=== PATIENT | male | born 1950 | race Caucasian/White ===

== ENCOUNTER → 2017-10-29 | Outpatient (CLI) | payer MEDICARE, MEDICAID ==
[~2017-10-29] VITALS: Ht 185.4 cm; Wt 96.6 kg
[~2017-10-29] MED LIST: ACYCLOVIR 400400 MG PO; ADULT LOW DOSE81 MG; ADULT LOW DOSE81 MG PO; AMITRIPTYLINE H50 M3 PO; ASPIRIN325 PO; ATORVASTATIN CA40 MG PO; CELEBREX 200 M200 M1 PO; COQ-10100 MG; CRESTOR10 MG; CRESTOR20 MG PO; DILTIAZEM 24HR180 M2 PO; DIOVAN160 MG; FLOMAX0.4 MG PO; GLUMETZA1000 PO; HYDROCODONE-AP1 EAC6 PO; INVOKANA300 MG PO; ISOSORBIDE DINI30 MG PO; LANTUS SUBQ; LASIX 40 MG TAB40 M2 PO; LOPRESSOR50 PO; NEURONTIN 300300 M1 PO; NEXIUM 40 MG CA40 M1 PO; NITROGLYCERIN0.4 MG SUBLING; NOVOLOG100 UNIT/1 SUBQ; PLAVIX 75 MG TA75 M1; PREDNISONE 10 M10 MG PO; RANEXA500 MG PO; VASOTEC 2.5MG2.5 M1 PO; ZANTAC 150MG T150 M1 PO
[2017-10-29 13:48] LABS: HEMATOCRIT 46.1 % (42.0-52.0); MCH 27.1 pg (26.0-34.0); MCHC 32.6 g/dL (28.0-37.0); MCV 83.1 fL (80.0-100.0); MPV 9.4 fl. (7.2-11.1); NUCLEATED RBCS 0 /100WBC; PLATELET COUNT* 227 thou/uL (150-400); RBC 5.55 mil/uL (4.50-6.00); RDW-CV 15.6 % (10.5-14.5); WBC 11.9 thou/uL (4.0-11.0)
[2017-10-29 13:52] LABS: CALCIUM 9.3 mg/dL (8.5-10.1); CREATININE 1.1 mg/dL (0.6-1.3); POTASSIUM 4.5 mmol/L (3.5-5.1)
[2017-10-29 14:15] LABS: ABSOLUTE LYMPHOCYTES 1.4 thou/uL (0.8-5.3); ABSOLUTE MONOCYTES 0.2 thou/uL (0.0-1.2); ABSOLUTE NEUTROPHILS 10.2 thou/uL (1.6-8.1); PLATELET ESTIMATE ADEQUATE
[2017-10-30 07:01] VITALS: BP 128/91
== END | disposition home or self-care (01) ==
LOC: M.PRE 08:19 → EDSTATUS 08:19 → M.PRE 09:05 → M.TBA 13:22 → M.LAB 13:22 → M.PRE 13:22
PROVIDERS: Surgery
DX: I65.22 Occlusion and stenosis of left carotid artery (principal); I25.10 Atherosclerotic heart disease of native coronary artery without angina pectoris; Z53.09 Procedure and treatment not carried out because of other contraindication

== ENCOUNTER 2018-04-02 08:47 | Inpatient (IN) | payer MEDICARE, MEDICAID ==
[~2018-04-02] VITALS: Ht 157.5 cm; Wt 93.4 kg
[2018-04-02 10:33] LABS: HEMATOCRIT 42.3 % (42.0-52.0); HEMOGLOBIN 13.1 gm/dL (14.0-18.0); MCH 22.5 pg (26.0-34.0); MCHC 30.9 g/dL (28.0-37.0); MCV 72.9 fL (80.0-100.0); NUCLEATED RBCS 0 /100WBC; PLATELET COUNT* 315 thou/uL (150-400); RDW-CV 18.4 % (10.5-14.5); WBC 18.7 thou/uL (4.0-11.0)
[2018-04-02 10:34] LABS: CREATININE 1.1 mg/dL (0.6-1.3)
[2018-04-02 10:50] VITALS: BP 126/68
[2018-04-02 11:42] LABS: ABSOLUTE LYMPHOCYTES 1.5 thou/uL (0.8-5.3); ABSOLUTE MONOCYTES 0.6 thou/uL (0.0-1.2); ABSOLUTE NEUTROPHILS 16.6 thou/uL (1.6-8.1)
[2018-04-02 11:43] LABS: ANISOCYTOSIS 1+; HYPOCHROMASIA 2+; MICROCYTES 1+; PLATELET ESTIMATE ADEQUATE
[2018-04-02 11:45] LABS: MACROCYTES Occasional; POLYCHROMASIA Occasional
[2018-04-02 20:00] VITALS: BP 147/57
--- NOTE | 2018-04-02 20:50 | OP ---
[facility] [address] [place] [address] OPERATIVE REPORT Name: MIKHAIL HENRY Room: [address] IN M.R.#: [id number] Admission: 04/02/18 Attend Phys: Osbaldo Rodriguez Discharge: Date of : 46 Report #: [id number] THIS REPORT FOR: //name// CC: Hoang Herr DATE OF SERVICE: 04/02/2018 PREOPERATIVE DIAGNOSIS: Left carotid stenosis. POSTOPERATIVE DIAGNOSIS: Left carotid stenosis. SURGEON: Hoang Shah DO. FEED BLENDER: ZAKIA Couch; JOSE ANTONIO Randle. ANESTHESIA: General endotracheal anesthesia. PROCEDURE: 1. Left carotid endarterectomy, bovine pericardial patch angioplasty. 2. Intraoperative carotid duplex. ESTIMATED BLOOD LOSS: 100 mL. SPECIMEN: Plaque. COMPLICATIONS: None. CONDITION: Stable. DISPOSITION: ICU. INDICATIONS FOR THE PROCEDURE AND CONSENT: The patient is a 67-year-old male with a greater than 70% stenosis of left internal carotid artery. Recommendation for left carotid endarterectomy with bovine pericardial patch was made. Risks and benefits were discussed including infection, bleeding, stroke, nerve injury, heart attack and . The patient wished to proceed, was consented and scheduled. PROCEDURE IN DETAIL: After timeout was performed, the patient was placed in supine position with sterile prep and drape of the anterior neck and chest wall. His neck was noted not to turn well. He has a large, obese neck as well, making exposure slightly more difficult. Lidocaine was injected anterior to the sternocleidomastoid in the anticipated skin incision site and a 10 blade scalpel used to make an incision. Dissection was carried down using [address] [address] OPERATIVE REPORT Name: MIKHAIL HENRY Room: [address] IN [facility].#: [id number] Admission: 04/02/18 Attend Phys: Osbaldo Rodriguez Discharge: Date of : 46 Report #: [id number] electrocautery and Metzenbaum scissors were used to open the carotid sheath. The common carotid artery was controlled with a Rumel tourniquet. The internal and external carotid arteries were identified and controlled with vessel loops. The patient was systemically heparinized with 6000 units of heparin. The carotid was palpated and noted to have focal plaque. After the heparin had circulated for 3 minutes, the internal, external and common carotid arteries were all clamped and controlled. An 11 blade and Herrera scissors were used to make a longitudinal arteriotomy. A #14 shunt was placed within this large vessel. The endarterectomy was then performed and noted to taper nicely distally. The endarterectomized portion was then cleaned meticulously with forceps and irrigated several times with hep saline. No identifiable flaps or debris was identified. The external carotid artery was everted well and any debris within the origin of the external carotid artery was also removed. The area was then again copiously irrigated and no debris or flaps or concerns were identified. A 0.8 x 8 bovine pericardial patch was then selected and sutured in place with 6-0 Prolene suture in circumferential fashion. Prior to complete closure, shunt was removed and the area irrigated again. The internal carotid artery was allowed to backbleed for 2 cardiac cycles and then re-occluded. The patch was then closed and blood flow was restored through the external carotid artery and then ultimately up to the internal carotid artery. At this point, the endarterectomy site was then observed with a carotid Doppler. The carotid duplex demonstrated excellent waveforms for the common internal and external carotid arteries without concern. Please see saved images. On B-mode imaging, however, there was a concern for mobile flap approximately below the carotid bifurcation. I attempted to suture this from externally with a 6-0 Prolene. The reimaging did not demonstrate a successful tacking of this flap. I then re-heparinized the patient with additional 1000 units of heparin and applied profunda clamps proximal and distal to this area and reopened the patch with 11 blade and Herrera scissors. I was able to identify a mobile flap and tacked to this with 6-0 Prolene suture in 2 places. This appeared to be the endpoint of the common carotid artery dissection or just appeared to be quite mobile. Once this was then performed, the patch was then closed with 6-0 Prolene suture. Both were restored through the external again first and then the internal carotid artery last. Repeat imaging demonstrated no mobile flap or concern on B-mode imaging and waveform still appeared appropriate. I then administered 50 units of protamine to reverse the heparin and wound was copiously irrigated and closed in layers using 2-0 Vicryl, 3-0 Vicryl and 4-0 Monocryl suture. Dermabond dressing was applied. The patient tolerated the procedure well and was transferred to recovery in stable condition. <ELECTRONICALLY SIGNED> By: Hoang Shah DO 04/02/182049 1749 182Hoang Shah DO /nt
[2018-04-02 21:00] VITALS: BP 113/58
[2018-04-02 22:00] VITALS: BP 99/48
[2018-04-02 23:00] VITALS: BP 91/50
--- NOTE | 2018-04-02 23:00 | NUR ---
PATIENT CAME TO OUR UNIT @ 1923. RECIEVED BEDSIDE REPORT FROM JOELLEN LEE. VS WNL. RIGHT ARTERIAL LINE IN PLACE. LEFT CEA INTACT MINIMAL SWELLING. PT COMPLAINING OF ACHING PAIN. I CALLED HIS DAUGHTER UPDATED ON CURRENT PT STATUS. SHE VOICED UNDERSTANDING. WILL CONTINUE TO MONITOR.
[2018-04-03] VITALS: BP 101/53
[2018-04-03 02:00] VITALS: BP 118/63
[2018-04-03 04:00] VITALS: BP 110/61
[2018-04-03 06:00] VITALS: BP 107/55
[2018-04-03 08:00] VITALS: BP 130/61
[2018-04-03 09:10] VITALS: BP 130/61
--- NOTE | 2018-04-03 09:32 | NUR ---
RECEIVED REPORT FROM SCORING MACHINE OPERATOR NURSE ALEC. ALL QUESTIONS ANSWERED. PATIENT AXOX4, ASSESSMENT CHARTED. ART LINE D/C AND PATIENT UP TO CHAIR FOR BREAKFAST. SOME PAIN, HYDROCODONE GIVEN. INCISION LOOKS CLEAN DRY AND INTACT. NO COMPLAINTS. GOALS ARE TO INCREASE ACTIVITY, MANAGE PAIN AND DISCHARGE. BED IN LOWEST POSITION, HISTOTECHNOLOGIST IN PLACE, CALL LIGHT IN REACH.
--- NOTE | 2018-04-03 14:35 | NUR ---
DISCHARGE PAPERWORK DONE AND SIGNED. ALL QUESTIONS ANSWERED. PATIENT IVS D/C. PATIENT GETTING DRESSED AT THIS TIME AND WAITING ON RIDE.
--- NOTE | 2018-05-08 08:08 | PATH ---
[address] [address] PATHOLOGY RPT PROCEDURE Name: MIKHAIL NEUMANN Room: [address] IN .R.#: [id number] Admission: 04/02/18 Date of : 46 Discharge: 04/03/18 Report #: [id number] Path Case #: [id number] [facility] Accession Number: [id number] . 01 Material submitted: . PLAQUE,LEFT CAROTID . 01 Clinical history: . Left carotid stenosis. . 02 Diagnosis: Plaque left carotid: - Fibrointimal atherosclerotic plaque with prominent calcification. (NANCY:lissa; 04/06/2018) QMS/04/06/2018 . 02 Electronically signed: . Eliu Akins MD, Pathologist NPI- [id number] . 01 Gross description: . Received in formalin labeled "Mikhail Neumann, plaque left carotid" is a tubular portion of castillo-white rubbery tissue measuring 2.3 cm in length and ranging from 0.5-0.7 cm in diameter. The specimen is Y shaped, and the luminal diameter ranges from 0.4-0.5 cm. Upon sectioning, calcifications comprise approximately 50% of the specimen. Pv Installer Tech sections are submitted in cassette A1 following decalcification. ([facility]; 04/05/2018) SYC/SYC . 02 Pathologist provided ICD-10: I25.10 . 02 CPT . 054619, [id number] Performed at: 01 [facility] [address], [place] [id number] MD Elfego Francis MD Phone: [phone] Performed at: 02 [facility] [address], [place], [place] [id number] MD Eliu Akins MD Phone: [phone]
== END 2018-04-03 15:12 | disposition home or self-care (01) | DRG 38 ==
LOC: M.PRE 08:47 → M.TBA 09:52 → M.ICU 09:52 → M.PRE 12:18 → M.ICU 19:13
PROVIDERS: Surgery; ADMIT Internal Medicine
DX: I65.22 Occlusion and stenosis of left carotid artery (principal); J98.11 Atelectasis; I42.9 Cardiomyopathy, unspecified; E66.01 Morbid (severe) obesity due to excess calories; Z68.37 Body mass index [BMI] 37.0-37.9, adult; I10 Essential (primary) hypertension; E78.5 Hyperlipidemia, unspecified; G47.33 Obstructive sleep apnea (adult) (pediatric); E11.51 Type 2 diabetes mellitus with diabetic peripheral angiopathy without gangrene; I25.10 Atherosclerotic heart disease of native coronary artery without angina pectoris; M19.90 Unspecified osteoarthritis, unspecified site; Z86.73 Personal history of transient ischemic attack (TIA), and cerebral infarction without residual deficits; I25.2 Old myocardial infarction; Z95.1 Presence of aortocoronary bypass graft; Z95.5 Presence of coronary angioplasty implant and graft; Z95.810 Presence of automatic (implantable) cardiac defibrillator; Z79.4 Long term (current) use of insulin; Z79.82 Long term (current) use of aspirin; Z79.899 Other long term (current) drug therapy; Z88.2 Allergy status to sulfonamides